=== PATIENT | female | born 1970 | race Two or more races ===

== ENCOUNTER 2019-07-27 21:18 | Emergency (ER) | payer MEDICAID ==
[~2019-07-27] VITALS: Ht 167.6 cm; Wt 71.3 kg
[2019-07-27 22:11] LABS: BASOPHILS # (AUTO) 0.03 x10^3/uL (0-0.1); BASOPHILS % (AUTO) 0 % (0-1); EOSINOPHILS # (AUTO) 0.05 x10^3/uL (0-0.4); EOSINOPHILS % (AUTO) 1 % (1-7); LYMPHOCYTES # (AUTO) 2.49 x10^3/uL (1-3.4); LYMPHOCYTES % (AUTO) 29 % (22-44); MD NO; MEAN CORPUSCULAR HEMOGLOBIN 34.2 pg (27.0-34.8); MEAN CORPUSCULAR HGB CONC 33.6 g/dL (32.4-35.8); MEAN CORPUSCULAR VOLUME 101.7 fL (80-100); MEAN PLATELET VOLUME 8.8 fL (7.4-10.4); MONOCYTES # (AUTO) 0.53 x10^3/uL (0.2-0.8); MONOCYTES % (AUTO) 6 % (2-9); NEUTROPHILS # (AUTO) 5.62 x10^3/uL (1.8-6.8); NEUTROPHILS % (AUTO) 64 % (42-75); PLATELET COUNT 220 x10^3/uL (130-400); RED BLOOD COUNT 4.09 x10^6/uL (3.82-5.3); RED CELL DISTRIBUTION WIDTH 12.4 % (9.6-15.2)
[2019-07-27 22:20] VITALS: BP 110/80
[2019-07-27 22:22] LABS: ALANINE AMINOTRANSFERASE 30 U/L (12-78); ANION GAP 6 mmol/L (5-15); CALCIUM 9.2 mg/dL (8.5-10.1); CHLORIDE 107 mmol/L (98-107); CREATININE 1.02 mg/dL (0.55-1.02)
[2019-07-27 22:26] LABS: ALKALINE PHOSPHATASE 32 U/L (45-117); BILIRUBIN,TOTAL 0.5 mg/dL (0.2-1.0); TOTAL PROTEIN 7.5 g/dL (6.4-8.2); TROPONIN I < 0.015 ng/mL (0.000-0.045)
[2019-07-27 22:32] LABS: MICROSCOPIC NOT IND
[2019-07-27 22:45] LABS: CULTURE INDICATED? NO
== END 2019-07-27 23:07 | disposition home or self-care (01) ==
LOC: ED 23:01
DX: R53.1 Weakness (principal)
CPT/HCPCS: 36415; 71045; 80053; 81003; 84484; 84703; 85025; 93005; 99284